=== PATIENT | male | born 1970 | race Caucasian/White ===

== ENCOUNTER 2016-12-12 07:49 | Emergency (ER) | payer BC ==
[2016-12-12] MEDS ORDERED: Sodium Chloride 0.9% 1,000 ML IV ONE (08:27)
--- NOTE | 2016-12-12 08:34 | EDM.PDOC ---
ED HPI GENERAL MEDICAL PROBLEM - General Chief Complaint: Syncope Stated Complaint: passed out three times at home and had bloody stools, ambulance called to bring patient in as he is very dizzy when he sits up Time Seen by Provider: 12/12/16 08:15 Source of Information: Reports: Patient, EMS, Family History Limitations: Reports: No Limitations - History of Present Illness Onset: Today, Sudden Onset Date: 12/12/16 Onset Time: 07:30 Duration: Minutes: Location: Reports: Other (no pain, nausea or vomiting) Quality: Reports: Other (no discomfort) Worsens with: Reports: Movement (dizzy with any movement, especially sitting up) Associated Symptoms: Reports: Weakness. Denies: Confusion, Chest Pain, Cough, cough w sputum, Diaphoresis, Fever/Chills, Headaches, Loss of Appetite, Malaise , Nausea/Vomiting, Rash, Seizure, Shortness of Breath, Syncope Treatments [employer]: Reports: IV/IO - Related Data Allergies Allergy/AdvReac Type Severity Reaction Status Date / Time No Known Allergies Allergy Verified 12/12/16 08:06 Past Medical History Psychiatric History: Reports: Anxiety - Past Surgical History HEENT Surgical History: Reports: Adenoidectomy, LASIK, Tonsillectomy GI Surgical History: Reports: Appendectomy, Bariatric Procedure, Cholecystectomy , Hernia, Abdominal Musculoskeletal Surgical History: Reports: Shoulder Surgery Social & Family History - Tobacco Use Smoking Status *Q: Never Smoker - Recreational Drug Use Recreational Drug Use: No ED ROS GENERAL - Review of Systems Review Of Systems: See Below Constitutional: Reports: Weakness. Denies: Fever, Chills, Fatigue HEENT: Reports: No Symptoms Respiratory: Reports: No Symptoms. Denies: Shortness of Breath, Pleuritic Chest Pain, Cough Cardiovascular: Reports: Lightheadedness, Syncope, Other (syncopal episodes times three this morning). Denies: Chest Pain, Dyspnea on Exertion, Edema, Palpitations Endocrine: Reports: Fatigue GI/Abdominal: Reports: Hematochezia, Melena, Other (first stools black, then bright red blood in toilet) : Reports: No Symptoms. Denies: Flank Pain, Frequency, Hematuria, Incontinence, Urgency Musculoskeletal: Reports: No Symptoms Skin: Reports: No Symptoms Neurological: Reports: Dizziness (with movement), Syncope (times three), Weakness. Denies: Confusion, Headache, Numbness, Paresthesia, Seizure, Trouble Speaking Psychiatric: Reports: No Symptoms Hematologic/Lymphatic: Reports: No Symptoms Immunologic: Reports: No Symptoms - Physical Exam Exam: See Below Exam Limited By: No Limitations General Appearance: Alert, WD/WN, No Apparent Distress Eye Exam: Bilateral Eye: EOMI, PERRL Ears: Normal External Exam, Normal Canal, Hearing Grossly Normal, Normal TMs Nose: Normal Inspection, Normal Mucosa, No Blood Throat/Mouth: Normal Inspection (oral mucous membranes are tacky, mildly dry), Normal Lips, Normal Teeth, Normal Gums, Normal Oropharynx, Normal Voice, No Airway Compromise Head Exam: Atraumatic, Normocephalic Neck: Normal Inspection, Supple, Non-Tender, Full Range of Motion Respiratory/Chest: No Respiratory Distress, Lungs Clear, Normal Breath Sounds, No Accessory Muscle Use, Chest Non-Tender Cardiovascular: Normal Peripheral Pulses, Regular Rate, Rhythm, No Edema, No Gallop, No JVD, No Murmur, No Rub GI/Abdominal: Normal Bowel Sounds, Soft, Non-Tender, No Organomegaly, No Distention, No Abnormal Bruit, No Mass (Male) Exam: Deferred Rectal (Males) Exam: Normal Exam, Normal Rectal Tone, Bloody Stool (tarry stool with positive IFOB, patient and family noted presence of both dark and bright red blood at home), Heme + Stool. No: Hemorrhoids, Tenderness Neuro Exam (Abbreviated): Alert, Oriented, CN II-XII Intact, Normal Cognition, Normal Gait, Normal Reflexes, No Motor/Sensory Deficits Back Exam: Normal Inspection, Full Range of Motion, NT Extremities: Normal Inspection, Normal Range of Motion, Non-Tender, No Pedal Edema, Normal Capillary Refill Psychiatric: Normal Affect, Normal Mood Skin Exam: Warm, Dry, Intact, Normal Color, No Rash Course - Vital Signs Last Recorded V/S: Last Vital Signs Temp 35.9 C 12/12/16 07:50 Pulse 68 12/12/16 09:31 Resp 16 12/12/16 09:31 BP 104/66 12/12/16 09:31 Pulse Ox 100 12/12/16 07:50 - Orders/Labs/Meds Labs: Laboratory Tests 12/12/16 12/12/16 Range/Units 08:30 08:30 WBC 7.9 (4.0-10.0) x10^3/uL RBC 3.22 L (4.5-6.0) x10^6/uL Hgb 10.5 L (14.0-18.0) g/dL Hct 30.0 L (40.0-52.0) % MCV 93.2 H (78.0-93.0) fL MCH 32.6 H (26.0-32.0) pg MCHC 35.0 (32.0-36.0) g/dL RDW Coeff of Pierce 12.2 (10.0-15.0) % Plt Count 171 (130-400) x10^3/uL Neut % (Auto) 81.4 H (50.0-80.0) % Lymph % (Auto) 11.1 L (25.0-50.0) % [place] % (Auto) 6.3 (2.0-11.0) % Eos % (Auto) 0.6 (0.0-4.0) % Baso % (Auto) 0.6 (0.2-1.2) % Sodium 142 (136-145) mmol/L Potassium 4.3 (3.5-5.1) mmol/L Chloride 108 H (98-107) mmol/L Carbon Dioxide 28 (21-32) mmol/L BUN 34 H (7-18) mg/dL Creatinine 1.2 (0.70-1.30) mg/dL Est Cr Clr Drug Dosing 69.41 mL/min Estimated GFR (MDRD) > 60 Glucose 78 (74-106) mg/dL Calcium 7.6 L (8.5-10.1) mg/dL Corrected Calcium 8.40 L (8.5-10.1) mg/dL Total Bilirubin 0.7 (0.2-1.0) mg/dL AST 20 (15-37) U/L ALT 28 (16-63) U/L Alkaline Phosphatase 47 (46-116) U/L Total Protein 5.4 L (6.4-8.2) g/dL Albumin 3.0 L (3.4-5.0) g/dL Globulin 2.4 Albumin/Globulin Ratio 1.25 Meds: Medications Discontinued Medications Generic Name Dose Route Start Last Admin Trade Name Freq PRN Reason Stop Dose Admin Sodium Chloride 1,000 mls @ 999 mls/hr 12/12/16 08:27 12/12/16 08:30 Normal Saline IV 12/12/16 09:27 999 mls/hr ONETIME ONE Administration Sodium Chloride 1,000 mls @ 50 mls/hr 12/12/16 09:45 12/12/16 09:35 Normal Saline IV 50 mls/hr ASDIRECTED COLE Administration - Re-Assessments/Exams Free Text/Narrative Re-Assessment/Exam: 12/12/16 09:16 Patient evaluated and labs reviewed. I contacted [facility] in [place] and spoke with Dr Perez, Hospitalist who agreed to accept patient in transfer. Patient and family agreeable. Discussed risks and benefits of transfer with patient and family and they are agreeable to transfer. Will transfer via [facility] ambulance. Patient remains in stable condition with stable vitals. 12/12/16 09:25 Patient is on the second liter of normal saline at this time. Departure - Departure Time of Disposition: 10:05 Disposition: DC/Tfer to Acute Hospital 02 Condition: Good Clinical Impression: GI bleeding Qualifiers: GI bleed type/associated pathology: melena Qualified Code(s): K92.1 - Melena Syncopal episodes Qualifiers: Syncope type: unspecified Qualified Code(s): R55 - Syncope and collapse - Discharge Information Referrals: PCP,Not In Area [Primary Care Provider] - Forms: ED Department Discharge, Interfacility Transfer TENA
[2016-12-12 09:11] LABS: CHLORIDE,CL 108 mmol/L (98-107); SODIUM,NA 142 mmol/L (136-145)
[2016-12-12 09:38] VITALS: BP 104/66
[2016-12-12] MEDS ORDERED: Sodium Chloride 0.9% 1,000 ML IV SCH (09:45)
== END 2016-12-12 10:02 | disposition short-term general hospital (02) ==
LOC: VM.ED 07:49
DX: R55 Syncope and collapse (principal); K92.1 Melena; F41.9 Anxiety disorder, unspecified; Z98.890 Other specified postprocedural states; Z90.49 Acquired absence of other specified parts of digestive tract; Z98.84 Bariatric surgery status
CPT/HCPCS: 36415; 80053; 85025; 96360; 96361; 99285; J7030

== ENCOUNTER 2016-12-15 20:07 | Emergency (ER) | payer BC ==
--- NOTE | 2016-12-15 20:26 | EDM.PDOC ---
ED HPI GENERAL MEDICAL PROBLEM - General Chief Complaint: Syncope Stated Complaint: Dizziness; Lightheaded; Syncope Time Seen by Provider: 12/15/16 20:07 Source of Information: Reports: Patient, EMS Notes Reviewed, Family, RN, RN Notes Reviewed History Limitations: Reports: No Limitations - History of Present Illness INITIAL COMMENTS - FREE TEXT/NARRATIVE: Patient presents to the emergency room at [facility] via EMS after he had a syncopal episode at home. The patient states he was seen in this emergency room last Wednesday for GI bleeding. The patient was subsequently transferred to [facility] for further workup and treatment. The patient states he underwent a colonoscopy and upper endoscopy on Wednesday. The patient states that the colonoscopy did not show source of bleeding. The upper endoscopy was normal as well. The patient was able to be discharged home yesterday afternoon. The patient states earlier this evening he became very weak and felt lightheaded. The patient states as he was attempting to crawl to the bathroom to use the toilet, his dizziness and lightheadedness he came worse. The patient states while he was sitting on the toilet she passed out and was found by his . At which time EMS was called. The patient denies any focal neurological deficit outside of feeling very lightheaded and dizzy. The patient denies any chest pain or shortness of breath. The patient denies any head injury or trauma. It is unclear how long the patient "passed out." The patient denies any abdominal pain. No nausea or vomiting. The patient states that his bowel movements have been loose but no blood. 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 - Related Data Allergies Allergy/AdvReac Type Severity Reaction Status Date / Time No Known Allergies Allergy Verified 12/12/16 08:06 Past Medical History Psychiatric History: Reports: Anxiety - Past Surgical History HEENT Surgical History: Reports: Adenoidectomy, LASIK, Tonsillectomy GI Surgical History: Reports: Appendectomy, Bariatric Procedure, Cholecystectomy , Hernia, Abdominal Musculoskeletal Surgical History: Reports: Shoulder Surgery Social & Family History - Family History Family Medical History: Noncontributory - Tobacco Use Smoking Status *Q: Never Smoker Tobacco Use Within Last Twelve Months: No - Alcohol Use Alcohol Use History: No Alcohol Use in Last Twelve Months: No - Recreational Drug Use Recreational Drug Use: No - Living Situation & Occupation Living situation: Reports: , with Spouse Occupation: Employed ED ROS GENERAL - Review of Systems Review Of Systems: See Below Constitutional: Reports: Weakness. Denies: Fever, Chills, Decreased Appetite Respiratory: Denies: Shortness of Breath, Cough Cardiovascular: Reports: Blood Pressure Problem (Hypotension), Lightheadedness. Denies: Chest Pain, Palpitations GI/Abdominal: Denies: Abdominal Pain, Nausea, Vomiting Skin: Reports: No Symptoms Neurological: Reports: Dizziness, Syncope, Weakness. Denies: Numbness, Paresthesia, Tingling - Physical Exam Exam: See Below Exam Limited By: No Limitations General Appearance: Alert, No Apparent Distress Head Exam: Atraumatic, Normocephalic Neck: Supple Respiratory/Chest: No Respiratory Distress, Lungs Clear, Normal Breath Sounds Cardiovascular: Normal Peripheral Pulses, Regular Rate, Rhythm, No Edema GI/Abdominal: Normal Bowel Sounds, Soft, Non-Tender Neuro Exam (Abbreviated): Alert, Oriented, Normal Cognition Skin Exam: Dry, Intact, No Rash, Cool, Pallor, Tattoo(s) EKG INTERPRETATION EKG Date: 12/15/16 Time: 20:36 Rhythm: NSR Rate (Beats/Min): 78 [place]: Normal P-Wave: Present QRS: Normal ST-T: Normal QT: Normal LA/PQ Interval: 0.16 EKG Interpretation Comments: 1. Normal Sinus Rhythm 2. Normal ECG Course - Vital Signs Last Recorded V/S: Last Vital Signs Temp 36.5 C 12/15/16 20:07 Pulse 77 12/15/16 21:26 Resp 16 12/15/16 21:26 BP 104/41 L 12/15/16 21:26 Pulse Ox 100 12/15/16 21:26 - Orders/Labs/Meds Orders: Active Orders 24 hr Category Date Time Status EKG 12 Lead [EKG Documentation Completion] [RC] STAT Care 12/15/16 20:29 Ordered Orthostatic Vital Signs [RC] ONETIME Care 12/15/16 20:29 Active TYPE AND SCREEN [BBK] Stat Lab 12/15/16 21:41 Ordered Sodium Chloride 0.9% [Saline Flush] Med 12/15/16 20:28 Active 10 ml FLUSH ASDIRECTED PRN Peripheral IV Insertion Adult [OM.PC] Routine Oth 12/15/16 20:28 Ordered Transfuse PRBC [Transfuse Red Blood Cells] [COMM] Stat Oth 12/15/16 21:50 Ordered Medication Orders Sodium Chloride (Saline Flush) 10 ml FLUSH ASDIRECTED PRN PRN Reason: Keep Vein Open Labs: Laboratory Tests 12/15/16 12/15/16 Range/Units 20:42 20:42 WBC 5.4 (4.0-10.0) x10^3/uL RBC 1.79 L (4.5-6.0) x10^6/uL Hgb 5.9 L* D (14.0-18.0) g/dL Hct 17.1 L (40.0-52.0) % MCV 95.5 H (78.0-93.0) fL MCH 33.0 H (26.0-32.0) pg MCHC 34.5 (32.0-36.0) g/dL RDW Coeff of Pierce 12.9 (10.0-15.0) % Plt Count 155 (130-400) x10^3/uL Add Manual Diff Yes Neutrophils % (Manual) 72 (50-80) % Band Neutrophils % 1 (0-6) % Lymphocytes % (Manual) 19 L (25-50) % Monocytes % (Manual) 7 (2-11) % Eosinophils % (Manual) 1 (0-4) % Platelet Estimate Adequate Polychromasia 2+ moderate H Anisocytosis 2+ moderate H Microcytosis 2+ moderate H Macrocytosis 1+ slight H Sodium 139 (136-145) mmol/L Potassium 3.8 (3.5-5.1) mmol/L Chloride 109 H (98-107) mmol/L Carbon Dioxide 29 (21-32) mmol/L BUN 22 H (7-18) mg/dL Creatinine 1.1 (0.70-1.30) mg/dL Est Cr Clr Drug Dosing TNP Estimated GFR (MDRD) > 60 Glucose 105 (74-106) mg/dL Calcium 6.9 L* (8.5-10.1) mg/dL Phosphorus 2.4 L (2.6-4.7) mg/dL Magnesium 1.7 L (1.8-2.4) mg/dL Meds: Medications Generic Name Dose Route Start Last Admin Trade Name Freq PRN Reason Stop Dose Admin Sodium Chloride 10 ml 12/15/16 20:28 Saline Flush FLUSH ASDIRECTED PRN Keep Vein Open Discontinued Medications Generic Name Dose Route Start Last Admin Trade Name Charles PRN Reason Stop Dose Admin Sodium Chloride 1,000 mls @ 999 mls/hr 12/15/16 20:28 12/15/16 20:07 Normal Saline IV 12/15/16 21:28 999 mls/hr ONETIME ONE Administration Departure - Departure Time of Disposition: 21:43 Disposition: DC/Tfer to Acute Hospital 02 Condition: Fair Clinical Impression: Syncope and collapse, Low hemoglobin Hypotension Qualifiers: Hypotension type: unspecified hypotension type Qualified Code(s): I95.9 - Hypotension, unspecified GI bleed Qualifiers: GI bleed type/associated pathology: melena Qualified Code(s): K92.1 - Melena - Discharge Information Forms: Interfacility Transfer [facility] ED Communication - ED Communication Date/Time Date: 12/15/16 Time Called: 21:31 - Discussed Case With (1) Discussed Case With (1): Admitting Provider (Dr. Amaya, Hospitalist) - Conversation Summary Admitting Provider Agreed to Patient's Admission: Yes Patient Aware of Amendments fo Care Plan: Yes Summary Comment: Case discussed with Dr. Cortes. Patient will be started on 2 units PRBC and transferred to [place] via ground EMS. Patient agree with transfer and wishes to proceed. - Problem List Review Problem List Initiated/Reviewed/Updated: Yes - My Orders Last 24 Hours: My Active Orders 12/15/16 20:28 Sodium Chloride 0.9% [Saline Flush] 10 ml FLUSH ASDIRECTED PRN Peripheral IV Insertion Adult [OM.PC] Routine 12/15/16 20:29 EKG 12 Lead [EKG Documentation Completion] [RC] STAT Orthostatic Vital Signs [RC] ONETIME 12/15/16 21:41 TYPE AND SCREEN [BBK] Stat 12/15/16 21:50 Transfuse PRBC [Transfuse Red Blood Cells] [COMM] Stat - Assessment/Plan Last 24 Hours: My Active Orders 12/15/16 20:28 Sodium Chloride 0.9% [Saline Flush] 10 ml FLUSH ASDIRECTED PRN Peripheral IV Insertion Adult [OM.PC] Routine 12/15/16 20:29 EKG 12 Lead [EKG Documentation Completion] [RC] STAT Orthostatic Vital Signs [RC] ONETIME 12/15/16 21:41 TYPE AND SCREEN [BBK] Stat 12/15/16 21:50 Transfuse PRBC [Transfuse Red Blood Cells] [COMM] Stat
[2016-12-15] MEDS ORDERED: Sodium Chloride 0.9% 1,000 ML IV ONE ×2 (20:28→21:00)
[2016-12-15] MEDS ORDERED: Sodium Chloride 0.9% 10 ML Syringe FLUSH PRN (20:28)
[2016-12-15] MEDS ORDERED: Sodium Chloride 0.9% 500 ML IV ONE (21:00)
[2016-12-15 21:07] LABS: CHLORIDE,CL 109 mmol/L (98-107); SODIUM,NA 139 mmol/L (136-145)
[2016-12-15 21:29] VITALS: BP 104/41
== END 2016-12-15 22:52 | disposition short-term general hospital (02) ==
LOC: VM.ED 20:07
DX: R55 Syncope and collapse (principal); I95.9 Hypotension, unspecified; K92.1 Melena; Z90.49 Acquired absence of other specified parts of digestive tract; Z98.84 Bariatric surgery status; Z98.890 Other specified postprocedural states
CPT/HCPCS: 36415; 36430; 80048; 83735; 84100; 85025; 86850; 86900; 86901; 86920; 86922; 93005; 96360; 96361; 99285; J7030; P9016

== ENCOUNTER 2018-06-07 22:00 | Emergency (ER) | payer BC ==
[2018-06-07] MEDS ORDERED: Sodium Chloride 0.9% 10 ML Syringe FLUSH PRN (22:29)
[2018-06-07] MEDS ORDERED: Sodium Chloride 0.9% 1,000 ML IV SCH (22:30)
[2018-06-07] MEDS ORDERED: Lisinopril 5 MG Tab PO ONE (22:53)
[2018-06-07 23:24] LABS: CHLORIDE,CL 106 mmol/L (98-107); SODIUM,NA 145 mmol/L (136-145)
[2018-06-07 23:25] LABS: ANION GAP 17.6 mmol/L (10-20)
[2018-06-07] MEDS ORDERED: Metoprolol Succinate 25 MG Tab.ER PO ONE (23:47)
--- NOTE | 2018-06-07 23:48 | EDM.PDOC ---
ED HPI GENERAL MEDICAL PROBLEM - General Chief Complaint: General Stated Complaint: syncope Time Seen by Provider: 06/07/18 22:17 Source of Information: Reports: Patient, Family History Limitations: Reports: No Limitations - History of Present Illness INITIAL COMMENTS - FREE TEXT/NARRATIVE: Patient here because he states he became dizzy at home and passed out. He states he has had GI bleeding in the past and has had similar symptoms. He states that he is still dizzy. History of gastric bypass surgery, tonsillectomy , appendectomy. He states he has been taking ibuprofen and drinking alcohol which he knows he should not be doing as it increases bleeding risk. He denies chest pain, headache, blurry or double vision, SOB. No abdominal pain. No bloody emesis, stools, or hematuria. He denies urinary symptoms. Onset: Today, Gradual Duration: Getting Worse Location: Reports: Abdomen, Upper Extremity, Right Quality: Reports: Ache, Pressure Severity: Severe Improves with: Reports: None Worsens with: Reports: Movement Associated Symptoms: Reports: No Other Symptoms, Rash - Related Data Allergies Allergy/AdvReac Type Severity Reaction Status Date / Time No Known Allergies Allergy Verified 06/07/18 22:04 Home Meds: Home Meds Citalopram [Citalopram HBr] 20 mg PO DAILY 06/07/18 [History] Past Medical History Psychiatric History: Reports: Anxiety, Depression - Past Surgical History HEENT Surgical History: Reports: Adenoidectomy, LASIK, Myringotomy w Tube(s), Tonsillectomy GI Surgical History: Reports: Appendectomy, Bariatric Procedure, Hernia, Abdominal Musculoskeletal Surgical History: Reports: Shoulder Surgery Social & Family History - Family History Family Medical History: Noncontributory - Tobacco Use Smoking Status *Q: Former Smoker Used Tobacco, but Quit: Yes Month/Year Tobacco Last Used: 1990 - Living Situation & Occupation Living situation: Reports: , with Spouse Occupation: Employed ED ROS GENERAL - Review of Systems Review Of Systems: See Below Constitutional: Reports: No Symptoms HEENT: Reports: No Symptoms Respiratory: Reports: No Symptoms Cardiovascular: Reports: No Symptoms Endocrine: Reports: No Symptoms GI/Abdominal: Reports: No Symptoms : Reports: No Symptoms Musculoskeletal: Reports: No Symptoms Skin: Reports: No Symptoms Neurological: Reports: Headache, Syncope Psychiatric: Reports: No Symptoms Hematologic/Lymphatic: Reports: No Symptoms Immunologic: Reports: No Symptoms ED EXAM, GENERAL - Physical Exam Exam: See Below Exam Limited By: No Limitations General Appearance: Alert, WD/WN, No Apparent Distress Eye Exam: Bilateral Eye: EOMI, Normal Inspection Ears: Normal TMs Nose: Normal Inspection, Normal Mucosa, No Blood Throat/Mouth: Normal Inspection, Normal Lips, Normal Teeth, Normal Gums, Normal Oropharynx, Normal Voice, No Airway Compromise Head: Atraumatic, Normocephalic Neck: Normal Inspection, Supple, Non-Tender, Full Range of Motion Respiratory/Chest: No Respiratory Distress, Lungs Clear, Normal Breath Sounds, No Accessory Muscle Use, Chest Non-Tender Cardiovascular: Normal Peripheral Pulses, Regular Rate, Rhythm, No Edema, No Gallop, No JVD, No Murmur, No Rub Peripheral Pulses: 2+: Posterior Tibial (L), Posterior Tibial (R), Dorsalis Pedis (L), Dorsalis Pedis (R) GI/Abdominal: Normal Bowel Sounds, Soft, Non-Tender, No Organomegaly, No Distention, No Abnormal Bruit, No Mass Back Exam: Normal Inspection, Full Range of Motion, NT Extremities: Normal Inspection, Normal Range of Motion, Non-Tender, Normal Capillary Refill, No Pedal Edema Neurological: Alert, Oriented, CN II-XII Intact, Normal Cognition, Normal Gait, Normal Reflexes, No Motor/Sensory Deficits Psychiatric: Normal Affect, Normal Mood Skin Exam: Warm, Dry, Intact, Normal Color, No Rash Lymphatic: No Adenopathy EKG INTERPRETATION EKG Date: 06/07/18 Time: 22:57 Rhythm: NSR Rate (Beats/Min): 93 [place]: Normal P-Wave: Present QRS: Normal ST-T: Normal QT: Normal Course - Vital Signs Last Recorded V/S: Last Vital Signs Temp 37.4 C 06/07/18 22:04 Pulse 107 H 06/07/18 23:58 Resp 18 06/07/18 22:04 BP 161/90 H 06/07/18 23:58 Pulse Ox 100 06/07/18 22:04 Orthostatic Blood Pressure [ 161/90 Standing] Orthostatic Blood Pressure [ 173/96 Sitting] Orthostatic Blood Pressure [ 157/94 Supine] - Orders/Labs/Meds Orders: Active Orders 24 hr Category Date Time Status EKG Documentation Completion [RC] STAT Care 06/07/18 22:29 Active Orthostatic Vital Signs [RC] ASDIRECTED Care 06/07/18 22:31 Active Saline Lock Insert [OM.PC] Routine Oth 06/07/18 22:29 Ordered Labs: Laboratory Tests 06/07/18 06/07/18 06/07/18 Range/Units 22:41 22:41 22:41 WBC 8.5 (4.0-10.0) x10^3/uL RBC 4.70 (4.5-6.0) x10^6/uL Hgb 13.5 L D (14.0-18.0) g/dL Hct 40.5 (40.0-52.0) % MCV 86.2 D (78.0-93.0) fL MCH 28.7 (26.0-32.0) pg MCHC 33.3 (32.0-36.0) g/dL RDW Coeff of Pierce 15.3 H (10.0-15.0) % Plt Count 262 D (130-400) x10^3/uL Neut % (Auto) 83.8 H (50.0-80.0) % Lymph % (Auto) 8.8 L (25.0-50.0) % [place] % (Auto) 6.1 (2.0-11.0) % Eos % (Auto) 0.7 (0.0-4.0) % Baso % (Auto) 0.6 (0.2-1.2) % PT 9.7 (9.6-11.4) SEC INR 0.9 L (2.0-3.5) Sodium 145 (136-145) mmol/L Potassium 3.6 (3.5-5.1) mmol/L Chloride 106 (98-107) mmol/L Carbon Dioxide 25 (21-32) mmol/L Anion Gap 17.6 (10-20) mmol/L BUN 10 (7-18) mg/dL Creatinine 1.2 (0.70-1.30) mg/dL Est Cr Clr Drug Dosing TNP Estimated GFR (MDRD) > 60 Glucose 91 (74-106) mg/dL Calcium 8.9 D (8.5-10.1) mg/dL Corrected Calcium 8.90 (8.5-10.1) mg/dL Phosphorus 1.9 L (2.6-4.7) mg/dL Magnesium 1.9 (1.8-2.4) mg/dL Total Bilirubin 0.5 (0.2-1.0) mg/dL AST 21 (15-37) U/L ALT 27 (16-63) U/L Alkaline Phosphatase 75 (46-116) U/L Creatine Kinase 153 (39-308) U/L Troponin I < 0.017 (<=0.056) ng/mL C-Reactive Protein < 0.2 (<=0.9) mg/dL Total Protein 7.2 (6.4-8.2) g/dL Albumin 4.0 (3.4-5.0) g/dL Globulin 3.2 Albumin/Globulin Ratio 1.25 TSH, Ultra Sensitive 0.422 (0.358-3.74) uIU/mL Ethyl Alcohol 120 H (0-3) mg/dL Meds: Medications Discontinued Medications Generic Name Dose Route Start Last Admin Trade Name Freq PRN Reason Stop Dose Admin Sodium Chloride 1,000 mls @ 999 mls/hr 06/07/18 22:30 06/07/18 23:04 Normal Saline IV 999 mls/hr ASDIRECTED COLE Administration Lisinopril 5 mg 06/07/18 22:53 06/07/18 23:58 Prinivil PO 06/07/18 22:54 5 mg ONETIME ONE Administration Metoprolol Succinate 12.5 mg 06/07/18 23:47 06/07/18 23:58 Toprol Xl PO 06/07/18 23:48 12.5 mg ONETIME ONE Administration Sodium Chloride 10 ml 06/07/18 22:29 Saline Flush FLUSH ASDIRECTED PRN Keep Vein Open - Radiology Interpretation Free Text/Narrative:: CT head negative for acute process Departure - Departure Time of Disposition: 00:26 Disposition: Home, Self-Care 01 Condition: Good Clinical Impression: Hypertension Qualifiers: Hypertension type: unspecified secondary hypertension Qualified Code(s): I15.9 - Secondary hypertension, unspecified - Discharge Information *PRESCRIPTION DRUG MONITORING PROGRAM REVIEWED*: Not Applicable *COPY OF PRESCRIPTION DRUG MONITORING REPORT IN PATIENT RADHA: Not Applicable Instructions: Hypertension Referrals: Radha Bianchi DO [Primary Care Provider] - Forms: ED Department Discharge Additional Instructions: Plan 1. Establish and follow closely with a primary doctor 2. You do have hypertension tonight 3. Your CT of the head is negative, EKG was normal, blood work was normal as well 4. You do need to stop taking ibuprofen and drinking to reduce your risk of bleeding 5. At this time there are no signs that you have any bleeding 6. Please call if you have any additional questions or concerns - Problem List & Annotations (1) Syncopal episodes SNOMED Code(s): 216031231 Code(s): R55 - SYNCOPE AND COLLAPSE Status: Acute Qualifiers: Syncope type: unspecified Qualified Code(s): R55 - Syncope and collapse (2) Hypertension SNOMED Code(s): 96259254 Code(s): I10 - ESSENTIAL (PRIMARY) HYPERTENSION Status: Acute Qualifiers: Hypertension type: unspecified secondary hypertension Qualified Code(s): I15.9 - Secondary hypertension, unspecified; I15 - Secondary hypertension - Problem List Review Problem List Initiated/Reviewed/Updated: Yes - My Orders Last 24 Hours: My Active Orders 06/07/18 22:29 EKG Documentation Completion [RC] STAT Saline Lock Insert [OM.PC] Routine 06/07/18 22:31 Orthostatic Vital Signs [RC] ASDIRECTED - Assessment/Plan Last 24 Hours: My Active Orders 06/07/18 22:29 EKG Documentation Completion [RC] STAT Saline Lock Insert [OM.PC] Routine 06/07/18 22:31 Orthostatic Vital Signs [RC] ASDIRECTED Assessment:: hypertension near syncope Plan: Plan 1. Establish and follow closely with a primary doctor 2. You do have hypertension tonight 3. Your CT of the head is negative, EKG was normal, blood work was normal as well 4. You do need to stop taking ibuprofen and drinking to reduce your risk of bleeding 5. At this time there are no signs that you have any bleeding 6. Please call if you have any additional questions or concerns
[2018-06-08 00:07] VITALS: BP 161/90
--- NOTE | 2018-06-08 08:43 | CT ---
[id number] CT/CT Head WO IV EXAM: CT Head WO IV CLINICAL DATA: SYNCOPE,FALL. COMPARISON STUDY: None FINDINGS: No intracranial hemorrhage, extra-axial fluid collection, mass, or acute ischemia. No hydrocephalus. Calvarium intact. Paranasal sinuses and mastoid air cells are clear. IMPRESSION: Negative examination of the brain. Nathan Bhatia MD 06/08/18 0840 Thank you for allowing us to participate in the care of your patient.
== END 2018-06-08 00:26 | disposition home or self-care (01) ==
LOC: VM.ED 22:00
DX: R55 Syncope and collapse (principal); I15.9 Secondary hypertension, unspecified; F41.9 Anxiety disorder, unspecified; F32.9 Major depressive disorder, single episode, unspecified; Z79.899 Other long term (current) drug therapy; Z87.891 Personal history of nicotine dependence
CPT/HCPCS: 36415; 70450; 80053; 82550; 83735; 84100; 84443; 84484; 85025; 85610; 86140; 93005; 96360; 99284; A9270; G0480; J7030

== ENCOUNTER 2020-12-19 02:00 | Emergency (ER) | payer BC, OTHER ==
[2020-12-19] MEDS ORDERED: GI Cocktail Oral Solution 30 ML PO ONE ×2 (02:17→02:30)
--- NOTE | 2020-12-19 02:25 | EDM.PDOC ---
ED HPI GENERAL MEDICAL PROBLEM - General Chief Complaint: Abdominal Pain Stated Complaint: abdominal pain. "I have an ulcer" Time Seen by Provider: 12/19/20 02:08 Source of Information: Reports: Patient History Limitations: Reports: No Limitations - History of Present Illness INITIAL COMMENTS - FREE TEXT/NARRATIVE: Patient comes into the emergency department with abdominal discomfort. Patient states that he has an ulcer that he has been dealing with for approximately 3 to 4 years and states that he had noticed the last 24 hours of significant and increased discomfort in his abdomen where the ulcer is located. He states that today the ulcer has gotten the worst it has ever been for pain. He states that he has become nauseated and is shaking due to the discomfort and pain. Patient states that he follows with a specialist to monitor the ulcer. Onset: Gradual Duration: Intermittent Location: Reports: Abdomen Quality: Reports: Stabbing, Throbbing Severity: Moderate Improves with: Reports: None Worsens with: Reports: Movement Context: Reports: Other Associated Symptoms: Reports: No Other Symptoms - Related Data Allergies Allergy/AdvReac Type Severity Reaction Status Date / Time No Known Allergies Allergy Verified 03/01/19 15:13 Home Meds: Home Meds ARIPiprazole [Abilify] 10 mg PO DAILY 02/10/19 [History] Citalopram Hydrobromide [Celexa] 40 mg PO DAILY 02/10/19 [History] Ferrous Sulfate 325 mg PO DAILY 02/10/19 [History] Past Medical History Cardiovascular History: Reports: Hypertension Gastrointestinal History: Reports: GERD, GI Bleed, Other (See Below) Other Gastrointestinal History: tarry stool. GI hemorrhage with melena Psychiatric History: Reports: Anxiety, Depression Other Endocrine/Metabolic History: low TSH level Other Hematologic History: acute blood loss anemia. vitamin D deficiency - Past Surgical History HEENT Surgical History: Reports: Adenoidectomy, LASIK, Myringotomy w Tube(s), Tonsillectomy Musculoskeletal Surgical History: Reports: Shoulder Surgery Social & Family History - Family History Family Medical History: No Pertinent Family History - Living Situation & Occupation Living situation: Reports: , with Spouse Occupation: Employed ED ROS GENERAL - Review of Systems Review Of Systems: Comprehensive ROS is negative, except as noted in HPI. Constitutional: Reports: No Symptoms HEENT: Reports: No Symptoms Respiratory: Reports: No Symptoms Cardiovascular: Reports: No Symptoms Endocrine: Reports: No Symptoms GI/Abdominal: Reports: Abdominal Pain : Reports: No Symptoms Musculoskeletal: Reports: No Symptoms Skin: Reports: No Symptoms Neurological: Reports: No Symptoms Psychiatric: Reports: No Symptoms Hematologic/Lymphatic: Reports: No Symptoms Immunologic: Reports: No Symptoms ED EXAM, GENERAL - Physical Exam Exam: See Below Exam Limited By: No Limitations General Appearance: Alert, WD/WN, No Apparent Distress Head: Atraumatic, Normocephalic Respiratory/Chest: No Respiratory Distress, Lungs Clear, Normal Breath Sounds, No Accessory Muscle Use, Chest Non-Tender Cardiovascular: Normal Peripheral Pulses, Regular Rate, Rhythm, No Edema GI/Abdominal: Normal Bowel Sounds, Soft, No Organomegaly, No Distention, No Abnormal Bruit, Tender Back Exam: Normal Inspection, Full Range of Motion Extremities: Normal Inspection, Normal Range of Motion, Non-Tender, Normal Capillary Refill Neurological: Alert, Oriented, Normal Gait Psychiatric: Normal Affect, Normal Mood Skin Exam: Warm, Dry, Intact Course - Orders/Labs/Meds Orders: Active Orders 24 hr Category Date Time Status GI Cocktail Med 12/19/20 02:30 Once 30 ml PO ONETIME ONE Ketorolac [Toradol] Med 12/19/20 02:30 Once 30 mg IVPUSH ONETIME ONE Meds: Medications Discontinued Medications Generic Name Dose Route Start Last Admin Trade Name Freq PRN Reason Stop Dose Admin Al Hydroxide/Mg Hydroxide 30 ml 12/19/20 02:17 Gi Cocktail Oral Solution 30 Ml PO 12/19/20 02:18 ONETIME ONE Departure - Departure Time of Disposition: 02:40 Disposition: Home, Self-Care 01 Clinical Impression: Gastric ulcer Qualifiers: Gastric ulcer chronicity: acute Gastric ulcer complication status: without hemorrhage or perforation Qualified Code(s): K25.3 - Acute gastric ulcer without hemorrhage or perforation - Discharge Information *PRESCRIPTION DRUG MONITORING PROGRAM REVIEWED*: Not Applicable *COPY OF PRESCRIPTION DRUG MONITORING REPORT IN PATIENT RADHA: Not Applicable Instructions: Peptic Ulcer Forms: ED Department Discharge Additional Instructions: 1. rest 2. increase your water intake 3. Continue all at home medications 4. Activity and diet as tolerated 5. Can take over the counter Tylenol for any pain or discomfort 6. Follow up with PCP if symptoms continue, return, or progress 7. Call with any questions or concerns 8. Can take GI cocktail nursing gave to you 4 hours after discharging from the ER if need be for pain. 9. If you feel further imaging/studies are needed please feel free to return for re-evaluation as necessary. - My Orders Last 24 Hours: My Active Orders 12/19/20 02:30 GI Cocktail 30 ml PO ONETIME ONE Ketorolac [Toradol] 30 mg IVPUSH ONETIME ONE - Assessment/Plan Last 24 Hours: My Active Orders 12/19/20 02:30 GI Cocktail 30 ml PO ONETIME ONE Ketorolac [Toradol] 30 mg IVPUSH ONETIME ONE Assessment:: 1. gastric ulcer flare Plan: 1. GI cocktail given with significant relief 2. Toradol given in ER 3. GI cocktail to go home with for 1 future does 4. Patient does not want any further imaging/studies completed tonight. He feels it was a flare and does not feel further testing is needed or warranted and will follow up with the specialist if it continues 5. Patient and nursing staff was updated regarding the plan of care 6. Education provided the patient regarding activity, diet, rest, ove [id number] medication modalities, and follow-up care was provided 7. Patient and family are agreeable to the above plan of care 8. All questions and concerns were addressed with the patient and family prior to discharge
[2020-12-19] MEDS ORDERED: Ketorolac 30 MG/ML SDV IVPUSH ONE (02:30)
[2020-12-19 02:34] VITALS: BP 180/104; PULSE 79
== END 2020-12-19 02:41 | disposition home or self-care (01) ==
LOC: VM.ED 02:00
DX: K25.3 Acute gastric ulcer without hemorrhage or perforation (principal); K21.9 Gastro-esophageal reflux disease without esophagitis; Z79.899 Other long term (current) drug therapy
CPT/HCPCS: 96374; 99283-25; A9270-GY; J1885

== ENCOUNTER 2024-05-22 00:25 | Emergency (ER) | payer OTHER ==
[2024-05-22] MEDS: Tamsulosin 0.4 MG Cap.ER PO ONE (01:22)
[2024-05-22 02:39] VITALS: BP 145/101; PULSE 84
[2024-05-22 08:22] LABS: APPEARANCE,URINE CLEAR (CLEAR); COLOR,URINE POC STRAW (YELLOW)
[2024-05-22 08:23] LABS: BILIRUBIN,URINE POC NEGATIVE (NEGATIVE); GLUCOSE,URINE POC NEGATIVE (NEGATIVE); KETONES,URINE POC NEGATIVE (NEGATIVE); LEUKOCYTE ESTERASE,URINE POC NEGATIVE (NEGATIVE); NITRITE,URINE POC NEGATIVE (NEGATIVE); OCCULT BLOOD,URINE POC TRACE (NEGATIVE); PROTEIN,URINE POC NEGATIVE (NEGATIVE); UROBILINOGEN,URINE POC 0.2 (0.2)
[2024-05-22 08:27] LABS: RBC,URINE POC 0-5 /HPF (NOT SEEN); WBC,URINE POC 0-5 /HPF (NOT SEEN)
[2024-05-22 08:28] LABS: BACTERIA,URINE POC OCCASIONAL (NOT SEEN); MUCUS,URINE POC RARE (NOT SEEN)
== END 2024-05-22 01:40 | disposition home or self-care (01) ==
LOC: VM.ED 00:25
DX: R33.9 Retention of urine, unspecified (principal); I10 Essential (primary) hypertension; K21.9 Gastro-esophageal reflux disease without esophagitis; Z79.899 Other long term (current) drug therapy; Z90.49 Acquired absence of other specified parts of digestive tract
CPT/HCPCS: 51702; 81000; 99284; A9270-GY